=== PATIENT | female | born 1965 | race African-American/Black ===

== ENCOUNTER 2019-02-06 20:45 | Inpatient (IN) | payer BC ==
[~2019-02-06] VITALS: Ht 165.1 cm; Wt 118.8 kg
[2019-02-06 20:50] VITALS: BP 182/102
--- NOTE | 2019-02-06 20:57 | NUR ---
PT AMBULATED TO THE RESTROOM TO GIVE U/A SPECIMEN AND OUT TO LOBBY, VSS
[2019-02-06 21:14] LABS: BASOPHILS # (AUTO) 0.1 K/uL (0.00-0.22); BASOPHILS % (AUTO) 0.7 % (0.0-2.0); EOSINOPHILS % (AUTO) 0.1 % (0.0-4.0); HEMATOCRIT 39.1 % (36-48); LYMPHOCYTES # (AUTO) 1.3 K/uL (2.5-16.5); LYMPHOCYTES % (AUTO) 13.5 % (20.5-51.1); MEAN CORPUSCULAR HEMOGLOBIN 28 pg (27-31); MEAN CORPUSCULAR HGB CONC 33 g/dL (33-37); MEAN CORPUSCULAR VOLUME 83.7 fL (80-94); MONOCYTES # (AUTO) 0.3 K/uL (0.8-1.0); MONOCYTES % (AUTO) 3.5 % (1.7-9.3); NEUTROPHILS # (AUTO) 8.1 K/uL (1.8-7.7); NEUTROPHILS % (AUTO) 82.2 % (42.2-75.2); PLATELET COUNT (AUTO) 333 K/uL (140-450); RED BLOOD CELL COUNT(AUTO) 4.67 MIL/uL (4.20-5.40); RED CELL DISTRIBUTION WIDTH 14.1 % (11.6-13.7); WHITE BLOOD COUNT (AUTO) 9.9 K/uL (4.8-10.8)
[2019-02-06 21:30] LABS: ANION GAP 17.4 (8-16); CARBON DIOXIDE 25.1 mmol/L (21-32); CREATININE 0.8 mg/dL (0.6-1.3); POTASSIUM 3.5 mmol/L (3.5-5.1)
[2019-02-06 21:32] LABS: APPEARANCE,URINE CLOUDY (CLEAR); BILIRUBIN,URINE 1+ (NEGATIVE); BLOOD, URINE 2+ (NEGATIVE); COLOR,URINE YELLOW (YELLOW); LEUKOCYTE ESTERASE ,URINE NEGATIVE (NEGATIVE); NITRITE, URINE NEGATIVE (NEGATIVE); PH,URINE 5.5 (5.0-9.0); UGLUCOSE NEGATIVE (NEGATIVE)
[2019-02-06 21:36] LABS: ALBUMIN 4.1 g/dL (3.4-5.0); TOTAL BILIRUBIN 0.3 mg/dL (0.0-1.0)
--- NOTE | 2019-02-06 21:38 | NUR ---
PT TAKEN TO BED 7
[2019-02-06 21:48] LABS: WBC,URINE 0-5 /HPF (0-5)
--- NOTE | 2019-02-06 21:54 | NUR ---
PT TO ED WITH C/O ABD PAIN S/P EATING CHILI FRIES X 1 DAY AGO. +N/V/D. PT REPORTS ABD PAIN TO RUQ/RLQ. NO OBVIOUS DISTENTION NOTED. BOWEL SOUNDS HYPERACTIVE X 4. PT ERPORTS MILD PAIN UPON PALPATION. PT PLACED INTO BED, PENDING MD EVANS.
--- NOTE | 2019-02-06 22:33 | NUR ---
Dr. Hernandez evaluating patient at bedside.
[2019-02-06] MEDS ORDERED: ONDANSETRON 4 MG/2 ML VIAL IVP ONE (22:40)
[2019-02-06] MEDS ORDERED: NACL 0.9% 1,000 ML IV ONE (22:40)
[2019-02-06] MEDS ORDERED: fentaNYL 0.05 MG/ML VIAL IVP ONE (22:40)
--- NOTE | 2019-02-06 23:38 | NUR ---
PT RETURN FROM CT
--- NOTE | 2019-02-07 00:17 | NUR ---
AMBULATORY TO RESTROOM WITHOUT ASSIST.
--- NOTE | 2019-02-07 00:20 | NUR ---
PT C/O PAIN. ER MD AWARE. NO NEW ORDERS RECEIVED.
[2019-02-07] MEDS ORDERED: LORazepam 2 MG/ML VIAL IM/IVP PRN (01:20)
[2019-02-07] MEDS ORDERED: MORPHINE SULFATE 2 MG/ML SYR IVP PRN (01:20)
[2019-02-07] MEDS ORDERED: DOCUSATE SODIUM 100 MG GELCAP PO PRN (01:20)
[2019-02-07] MEDS ORDERED: fentaNYL 0.05 MG/ML VIAL IVP ONE (01:20)
[2019-02-07] MEDS ORDERED: ACETAMINOPHEN 325 MG TAB PO PRN (01:20)
[2019-02-07] MEDS ORDERED: LORazepam 2 MG/ML VIAL IVP ONE (01:20)
[2019-02-07] MEDS ORDERED: ZOLPIDEM 5 MG TAB PO PRN (01:20)
[2019-02-07] MEDS ORDERED: HYDROcodone/APAP 5/325 MG 1 TAB TAB PO PRN (01:20)
[2019-02-07 01:50] VITALS: BP 149/89
--- NOTE | 2019-02-07 01:50 | NUR ---
RECEIVED REPORT FROM ER NURSE. PT AWAKE, ALERT AND ORIENTED X 4. PT AMBULATED FROM GURNEY TO BED, STEADY GAIT. PT STATING 98% ON RA. PT 20 G LEFT A/C INTACT. PT SKIN INTACT. NO C/O DISCOMFORT. SAFETY MEASURES IN PLACE, BED RAILS UP X2, BED IN LOW POSITION, NON-SLIP SOCKS. PT EDUCATED ON USE OF CALL LIGHT. CALL LIGHT WITHIN REACH. WILL CONTINUE TO MONITOR.
[2019-02-07 01:51] LABS: BARBITURATE, URINE NEG. ng/ml (NEG <=200); BENZODIAZEPINE, URINE NEG. ng/mL (NEG <=200); CANNABINOID, URINE POS. ng/mL (NEG <=50); COCAINE, URINE NEG. ng/mL (NEG <=300); OPIATE, URINE NEG. ng/mL (NEG <=2000); PHENCYCLIDINE SCREEN,URINE NEG. ng/mL (NEG <=25)
--- NOTE | 2019-02-07 01:52 | NUR ---
Patient will be admitted to care of DR SAEED. Admited to MED/SURG. Will go to [id number]. Belongings list completed. Report to STACEYVINICIO.
[2019-02-07 02:02] LABS: PHOSPHORUS 3.6 mg/dL (2.5-4.9); THYROID STIMULATING HORMONE 1.36 uIU/mL (0.34-3.74)
[2019-02-07] MEDS ORDERED: ALBUTEROL SULFATE/IPRATROPIU 3 ML SOL IH PRN (02:25)
[2019-02-07 02:30] LABS: PROTHROMBIN TIME 10.1 secs (10.8-13.4)
[2019-02-07] MEDS ORDERED: metroNIDAZOLE 500 MG/NS PREMIX 100 ML IV SCH (02:30)
[2019-02-07] MEDS: DEXT 5% /NACL 0.9% 1,000 ML IV SCH ×2 (02:47→15:35)
--- NOTE | 2019-02-07 02:47 | NUR ---
IVF STARTED, MEDICATIONS GIVEN. PT TOLERATED WELL. NO C/O DISCOMFORT. SAFETY MEASURES IN PLACE. CALL LIGHT WITHIN REACH. WILL CONTINUE TO MONITOR.
[2019-02-07] MEDS ORDERED: NICOTINE TRANSD SYS 14 MG/24 HR PATCH TD SCH (03:00)
[2019-02-07 04:00] VITALS: BP 162/77
--- NOTE | 2019-02-07 04:45 | NUR ---
ROUNDED ON PT. PT ASLEEP IN BED. NO VISIBLE SIGNS OF DISTRESS. SAFETY MEASURES IN PLACE. CALL LIGHT WITHIN REACH. WILL CONTINUE TO MONITOR.
--- NOTE | 2019-02-07 05:30 | NUR ---
ADMINISTERED SOAP BRADLEY ENEMA PER ORDERS. PT TOLDERATED WELL. PT COMPLAINED OF "STOMACH BUBBLING". PT WENT TO THE REST ROOM BUT WAS UNABLE TO HAVE A BOWEL MOVEMENT.
[2019-02-07 06:45] LABS: BASOPHILS # (AUTO) 0.1 K/uL (0.00-0.22); BASOPHILS % (AUTO) 0.7 % (0.0-2.0); EOSINOPHILS % (AUTO) 0.1 % (0.0-4.0); HEMATOCRIT 37.3 % (36-48); HEMOGLOBIN 12.1 g/dL (12.0-16.0); LYMPHOCYTES # (AUTO) 2.4 K/uL (2.5-16.5); LYMPHOCYTES % (AUTO) 28.5 % (20.5-51.1); MEAN CORPUSCULAR HEMOGLOBIN 28 pg (27-31); MEAN CORPUSCULAR HGB CONC 32 g/dL (33-37); MEAN CORPUSCULAR VOLUME 86.2 fL (80-94); MONOCYTES # (AUTO) 0.6 K/uL (0.8-1.0); MONOCYTES % (AUTO) 7.6 % (1.7-9.3); NEUTROPHILS # (AUTO) 5.3 K/uL (1.8-7.7); NEUTROPHILS % (AUTO) 63.1 % (42.2-75.2); PLATELET COUNT (AUTO) 322 K/uL (140-450); RED BLOOD CELL COUNT(AUTO) 4.32 MIL/uL (4.20-5.40); RED CELL DISTRIBUTION WIDTH 14.1 % (11.6-13.7); WHITE BLOOD COUNT (AUTO) 8.4 K/uL (4.8-10.8)
[2019-02-07 06:59] LABS: ANION GAP 14.4 (8-16); CARBON DIOXIDE 26.9 mmol/L (21-32); CREATININE 0.8 mg/dL (0.6-1.3); POTASSIUM 3.3 mmol/L (3.5-5.1)
--- NOTE | 2019-02-07 07:20 | NUR ---
ENDORSED PT TO AM NURSE. PT IN STABLE CONDITION.
--- NOTE | 2019-02-07 07:30 | NUR ---
RECEIVED PT ON BED AAOX4. NO SOB NOTED. NO C/O PAIN AT THIS TIME. IV TO LEFT AC PATENT AND INTACT. CHEST CLEAR. ABDOMEN SLIGHTLY DISTENDED, BOWEL SOUNDS PRESENT. NO EDEMA NOTED. NPO MAINTAINED EXCEPT MEDS. INSTRUCTED PT TO CALL FOR ASSISTANCE, CALL LIGHT WITHIN REACH, VERBALIZED UNDERSTANDING.
[2019-02-07 08:00] VITALS: BP 163/84
--- NOTE | 2019-02-07 08:27 | NUR ---
PATIENT HAS BEEN SCREENED AND CATEGORIZED HIGH NUTRITION RISK. PATIENT WILL BE SEEN WITHIN 1-2 DAYS OF ADMISSION. 02/06/19-02/08/[address]
[2019-02-07] MEDS ORDERED: PSYLLIUM 12.2 GM/PKT PO SCH (09:00)
[2019-02-07] MEDS: NICOTINE TRANSD SYS 14 MG/24 HR PATCH TD SCH (09:00)
--- NOTE | 2019-02-07 10:00 | NUR ---
PT HAD BMX1, SMALL AMOUNT OF FORMED STOOLS, BROWN IN COLOR PER PT. WILL CONTINUE TO MONITOR.
[2019-02-07] MEDS: LACTOBACILLUS RHAMNOSUS GG 1 EACH CAP PO SCH (10:21)
[2019-02-07] MEDS: PANTOPRAZOLE 40 MG INJ VIAL IVP SCH (10:21)
--- NOTE | 2019-02-07 11:55 | NUR ---
DR. PARK NOTIFIED OF PT'S LATEST POTASSIUM LEVEL.
[2019-02-07 12:00] VITALS: BP 170/86
--- NOTE | 2019-02-07 12:30 | NUR ---
latest BP: 170/86 mmhg, HR: 50/min. pt asymptomatic, Dr. scott notified of elevated BP and decreased heart rate.
[2019-02-07] MEDS ORDERED: BISACODYL 10 MG SUPP RC SCH (13:00)
[2019-02-07] MEDS: metroNIDAZOLE 500 MG/NS PREMIX 100 ML IV SCH ×2 (13:13→21:17)
--- NOTE | 2019-02-07 13:15 | NUR ---
PT REFUSING SUPPOSITORY AT THIS TIME. STATED SHE WILL HAVE IT LATER THIS AFTERNOON WHEN HER VISITOR LEAVES.
--- NOTE | 2019-02-07 14:31 | NUR ---
02/07/19 RD INITIAL ASSESSMENT COMPLETED PLEASE REFER TO NUTRITION ASSESSMENT UNDER CARE ACTIVITY FOR ESTIMATED NUTRITIONAL NEEDS. 1. CONTINUE NPO DIET MEDICALLY NECESSARY 2. RECOMMEND CLEAR LIQUID DIET WHEN PT IS MEDICALLY STABLE TO RECEIVE NUTRITION. 3. HIGH FIBER DIET EDUCATION WAS PROVIDED 4. RD TO FOLLOW-UP 3-5 DAYS, MODERATE RISK WILLI AMES RD
[2019-02-07 16:00] VITALS: BP 142/72
--- NOTE | 2019-02-07 16:30 | NUR ---
latest BP: 142/86 mmhg, HR: 48/min. pt asymptomatic, Dr. Hussein notified of elevated BP and decreased heart rate as well as today's K level.
[2019-02-07] MEDS ORDERED: METOCLOPRAMIDE 10 MG TAB PO SCH ×2 (17:20→18:12)
[2019-02-07] MEDS ORDERED: MAGNESIUM HYDROXIDE 2400 MG/30 ML UDC PO SCH (17:29)
[2019-02-07] MEDS ORDERED: POTASSIUM CHLORIDE 10 MEQ TABER PO SCH (17:29)
[2019-02-07] MEDS ORDERED: MAGNESIUM OXIDE 400 MG TAB PO SCH (17:29)
--- NOTE | 2019-02-07 17:30 | NUR ---
NPO EXCEPT MEDS MAINTAINED BY PT ORDERED, VERBALIZED UNDERSTANDING.
[2019-02-07] MEDS ORDERED: POTASSIUM CHLORIDE 10 MEQ TABER PO ONE (18:00)
--- NOTE | 2019-02-07 19:04 | NUR ---
PT AWAKE, TALKING TO FAMILY AT THE BEDSIDE. NO SOB NOTED. NO COMPLAINTS MADE. WILL ENDORSE TO NEXT SHIFT NURSE FOR CONTINUITY OF CARE.
--- NOTE | 2019-02-07 19:05 | NUR ---
RECEIVED REPORT FROM AM NURSE. PT AWAKE, ALERT AND ORIENTED X4. PT SITTING UP IN BED SPEAKING WITH . LEFT AC 20 G INTACT AND INFUSING WELL. PT ON ROOM AIR. NO C/O OF DISCOMFORT. SAFETY MEASURES IN PLACE. PT IS AMBULATORY WITH STEADY GAIT. CALL LIGHT WITHIN REACH. WILL CONTINUE TO MONITOR.
[2019-02-07 20:15] VITALS: BP 142/72
[2019-02-07] MEDS: PSYLLIUM 12.2 GM/PKT PO SCH (21:18)
[2019-02-07] MEDS: DOCUSATE SODIUM 100 MG GELCAP PO SCH (21:18)
--- NOTE | 2019-02-07 21:20 | NUR ---
ROUNDED ON PT. PT SLEEPING ON RIGHT LATERAL SIDE. NO VISIBLE SIGNS OF DISTRESS. BREATHING EQUAL AND UNLABORED. SAFETY MEASURES IN PLACE. CALL LIGHT WITHIN REACH. WILL CONTINUE TO MONITOR.
[2019-02-07] MEDS ORDERED: LACTULOSE 20 GM/30 ML UDC PO SCH (21:30)
--- NOTE | 2019-02-07 22:46 | NUR ---
PT C/O "STOMACH CRAMPS" PT REFUSED MORPHINE OR NORCO FOR PAIN MANAGEMENT. PT GIVEN TYLENOL FOR PAIN MANAGEMENT. AUSCULTATED BOWEL SOUNDS HYPOACTIVE.
[2019-02-08] VITALS: BP 150/84
--- NOTE | 2019-02-08 00:10 | NUR ---
VITALS TAKEN ON PT. PT SLEEPING BUT EASILY AROUSABLE. NO C/O DISCOMFORT. CALL LIGHT WITHIN REACH.
--- NOTE | 2019-02-08 01:30 | NUR ---
PT STANDING AT BEDSIDE CRYING. PT STATES THAT HER "STOMACH IS CRAMPING." PT HAS YET TO HAVE A BM ON SHIFT. RESIDENT MD INFORMED OF PT CONDITION. RESIDENT MD GAVE ORDERS FOR FLEETS ENEMA.
--- NOTE | 2019-02-08 01:39 | NUR ---
FLEET ENEMA ADMINISTERED TO PT. PT TOLERATED WELL.
--- NOTE | 2019-02-08 01:40 | NUR ---
PT INSTRUCTED TO HOLD FLUIDS FROM ENEMA FOR 1-5 MIN PER INSTRUCTIONS. PT GOT UP TO USE RESTROOM IMMEDIATELY AFTER ADMINISTRATION. NO BM RESULTED.
[2019-02-08] MEDS ORDERED: SODIUM PHOSPHATE 118 ML ENEM RC SCH (02:00)
--- NOTE | 2019-02-08 02:30 | NUR ---
PT HAD SMALL EMISIS. SAFETY MEASURES IN PLACE. WILL CONTINUE TO MONITOR.
[2019-02-08] MEDS: DEXT 5% /NACL 0.9% 1,000 ML IV SCH ×2 (02:51→20:11)
--- NOTE | 2019-02-08 03:09 | NUR ---
PT TAKEN TO RADIOLOGY VIA WHEEL CHAIR FOR STANDING KUB ORDERED
--- NOTE | 2019-02-08 03:19 | NUR ---
PT RETURNED FROM RADIOLOGY. PT RECONNECTED TO IV FLUIDS. PT LAYING IN BED, AWAKE, ALERT AND ORIENTED X 4.
[2019-02-08 04:00] VITALS: BP 174/85
--- NOTE | 2019-02-08 04:40 | NUR ---
NGT PLACED PER ORDERS
[2019-02-08] MEDS: metroNIDAZOLE 500 MG/NS PREMIX 100 ML IV SCH ×3 (04:55→20:49)
--- NOTE | 2019-02-08 05:14 | NUR ---
ATIVAN GIVEN FOR ANXIETY
[2019-02-08 06:02] LABS: BASOPHILS % (AUTO) 0.5 % (0.0-2.0); HEMATOCRIT 35.7 % (36-48); HEMOGLOBIN 11.7 g/dL (12.0-16.0); LYMPHOCYTES # (AUTO) 0.9 K/uL (2.5-16.5); LYMPHOCYTES % (AUTO) 13.9 % (20.5-51.1); MEAN CORPUSCULAR HEMOGLOBIN 28 pg (27-31); MEAN CORPUSCULAR HGB CONC 33 g/dL (33-37); MEAN CORPUSCULAR VOLUME 84.6 fL (80-94); MONOCYTES # (AUTO) 0.4 K/uL (0.8-1.0); MONOCYTES % (AUTO) 6.8 % (1.7-9.3); NEUTROPHILS # (AUTO) 4.9 K/uL (1.8-7.7); NEUTROPHILS % (AUTO) 78.8 % (42.2-75.2); PLATELET COUNT (AUTO) 302 K/uL (140-450); RED BLOOD CELL COUNT(AUTO) 4.22 MIL/uL (4.20-5.40); RED CELL DISTRIBUTION WIDTH 13.8 % (11.6-13.7); WHITE BLOOD COUNT (AUTO) 6.2 K/uL (4.8-10.8)
--- NOTE | 2019-02-08 06:14 | NUR ---
ROUNDED ON PT. PT SLEEPING IN BED. NO VISIBLE SIGNS OF DISTRESS. CALL LIGHT WITHIN REACH.
[2019-02-08 06:20] LABS: ANION GAP 11.9 (8-16); CARBON DIOXIDE 27.4 mmol/L (21-32); CREATININE 0.8 mg/dL (0.6-1.3); POTASSIUM 3.3 mmol/L (3.5-5.1)
[2019-02-08 06:25] LABS: PHOSPHORUS 2.6 mg/dL (2.5-4.9)
--- NOTE | 2019-02-08 07:15 | NUR ---
ENDORSED TO AM NURSE. PT IN STABLE CONDITION.
--- NOTE | 2019-02-08 07:17 | NUR ---
RECEIVED PT FROM INCOME TAX PREPARER NURSE FOR CONTINUITY OF CARE. PT ASLEEP WITH NO APPARENT SIGN OF DISTRESS.
--- NOTE | 2019-02-08 07:20 | NUR ---
PT IS ASLEEP AND LYING ON THE BED WITH, RESPIRATION IS EVEN, SATURATION ON ROOM AIR, WITH NG TUBE IN PLACE AND ON INTERMITTENT SUCTION, PT HAS AN IV LINE ON THE LEFT AC G. 2O WITH D5 NS AT 70ML/HR INFUSING, PT WAS ON NPO EXCEPT MEDS. NO SIGN OF DISTRESS NOTED. WILL MONITOR PT.
[2019-02-08 08:00] VITALS: BP 175/89
[2019-02-08] MEDS ORDERED: POTASSIUM CHLORIDE 40 MEQ, LIDOCAINE MPF 1% - 5 mL VIAL 25 MG in NACL 0.9% 250 ML IV SCH (08:30)
[2019-02-08] MEDS: METOCLOPRAMIDE 10 MG TAB PO SCH ×3 (08:30→16:54)
[2019-02-08] MEDS: DOCUSATE SODIUM 100 MG GELCAP PO SCH ×2 (08:30→20:50)
--- NOTE | 2019-02-08 08:30 | NUR ---
PT'S PERIPHERAL LINE WAS INFILTRATED AND A NEW PERIPHERAL LINE WAS STARTED TO PT ON THE RT FA G. 22.
[2019-02-08] MEDS: PANTOPRAZOLE 40 MG INJ VIAL IVP SCH (08:31)
[2019-02-08] MEDS: LACTOBACILLUS RHAMNOSUS GG 1 EACH CAP PO SCH (08:31)
[2019-02-08] MEDS: PSYLLIUM 12.2 GM/PKT PO SCH ×2 (08:34→20:49)
[2019-02-08] MEDS: HYDROCHLOROTHIAZIDE 25 MG TAB PO SCH (09:06)
[2019-02-08] MEDS: amLODIPine 5 MG TAB PO SCH (09:07)
[2019-02-08] MEDS: NICOTINE TRANSD SYS 14 MG/24 HR PATCH TD SCH (09:08)
--- NOTE | 2019-02-08 12:34 | NUR ---
PT IS AWAKE AND ON THE BEDSIDE, ORAL AND IV MEDICATION WAS GIVEN AND PT TOLERATED IT. ANOTHER X-RAY WAS DONE TO PT ON THE ABDOMEN. NO SIGN OF DISTRESS NOTED. WILL MONITOR PT.
--- NOTE | 2019-02-08 12:39 | NUR ---
DR. EGAN CAME TO THE PT'S ROOM AND SPOKE TO PT.
--- NOTE | 2019-02-08 15:55 | NUR ---
PT GIVEN MED, TOLERATED WELL. PT DENIES ANY PAIN AT THIS TIME. FAMILY PRESENT AT BEDSIDE.
[2019-02-08 16:00] VITALS: BP 169/88
--- NOTE | 2019-02-08 17:00 | NUR ---
PT AWAKE TALKING WITH FAMILY MEMBERS, TAKEN VS BP 169/88, T 98.1 (ORALLY), P 56, R 20, O2 100% RA. NOTIFIED MD. WILL CONTINUE TO MONITOR PT.
[2019-02-08 18:14] LABS: TRANSFERRIN 246 mg/dL (200 - 370)
--- NOTE | 2019-02-08 18:55 | NUR ---
PATIENT AWAKE, TALKING WITH FAMILY MEMBERS. VS RE-CHECKED BP 168/81, P 56. WILL ENDORSE TO CENTRAL SERVICE SUPPLY DISTRIBUTOR NURSE TO CONTINUE MONITORING, AND INFORM MD
--- NOTE | 2019-02-08 19:20 | NUR ---
PT ENDORSED TO TUNNEL MUCKER NURSE FOR CONTINUITY OF CARE. FAMILY AWAKE, ALERT, FAMILY AT BEDSIDE.
--- NOTE | 2019-02-08 19:21 | NUR ---
PATIENT AWAKE ON BED ,ALERT ,ORIENTED, MED SURG ,IV SITE INTACT AND PATENT ,NO COMPLAIN OF ABDOMINAL PAIN AT THIS TIME ,WITH NGT LOW INTERMITTENT SUCTION . PLAN OF CARE DISCUSSED AND VERBALIZED OF UNDERSTANDING,FAMILY MEMBERS AT BEDSIDES.BED IN LOW POSITION ,SIDERAILS UPX2 ,CALL LIGHT WITHIN REACH. WILL CONTINUE TO MONITOR.
[2019-02-08 19:45] VITALS: BP 182/90
[2019-02-08] MEDS: ONDANSETRON 4 MG/2 ML VIAL IM/IVP PRN (20:02)
--- NOTE | 2019-02-08 20:02 | NUR ---
PATIENT VOMITED WITH CLEAR LIQUID VOMITUS IN MODERATE AMOUNT.ZOFRAN 4MG/IV PUSH GIVEN ORDERED.
[2019-02-08] MEDS ORDERED: LISINOPRIL 10 MG TAB ONE (20:19)
[2019-02-08] MEDS: LISINOPRIL 10 MG TAB PO SCH (20:50)
--- NOTE | 2019-02-08 20:55 | NUR ---
PT REFUSED HEPARIN SUBQ. SHE SAID WHEN SHE HAD IT ,SHE DIDN'T FEEL GOOD. DR. ARNOLD MADE AWARE . SHE SAID OK. JUST APPLY SCD TO BLE.
--- NOTE | 2019-02-08 21:49 | NUR ---
DR. EGAN CALLED AND ASKED IF DR. Genaro ZAVALA ALREADY SEEN PT. I TOLD HIM NOT YET, BUT PT ALREADY HAD X4 BM TODAY. NO NEW ORDER MADE.
[2019-02-09] VITALS: BP 135/78
--- NOTE | 2019-02-09 | NUR ---
MADE ROUNDS. PATIENT RESTING ON BED ,NGT DRAINING AND INTACT .NO S/SX OF DISCOMFORT NOTED AT THIS TIME.
--- NOTE | 2019-02-09 02:00 | NUR ---
PATIENT SLEEPING ,BED ON LOW POSITION ,NO S/SX OF DISCOMFORT NOTED AT THIS TIME.
--- NOTE | 2019-02-09 05:00 | NUR ---
PATIENT VOMITED OF CLEAR LIQUID ,NON BLOODY VOMITUS ON MODERATE AMOUNT.IV SITE ON LEFT UPPER FOREARM INFLAMMED AND NOT INTACT. AND NEW IV CANNULA INSERTED ON RIGHT LOWER ARM .WILL CONTINUE TO MONITOR.
[2019-02-09] MEDS: DEXT 5% /NACL 0.9% 1,000 ML IV SCH (05:30)
[2019-02-09] MEDS: metroNIDAZOLE 500 MG/NS PREMIX 100 ML IV SCH ×2 (05:30→13:00)
[2019-02-09] MEDS: ONDANSETRON 4 MG/2 ML VIAL IM/IVP PRN (05:30)
--- NOTE | 2019-02-09 05:30 | NUR ---
PERSISTENT VOMITING .ZOFRAN TIV PRN GIVEN ORDERED OTHER SCHEDULED MED. GIVEN .IVF INFUSING WELL.WILL CONTINUE TO MONITOR.
[2019-02-09 06:21] LABS: MAGNESIUM 1.8 mg/dL (1.8-2.4)
[2019-02-09 06:59] LABS: ANION GAP 12.6 (8-16); CARBON DIOXIDE 28.7 mmol/L (21-32); CREATININE 0.8 mg/dL (0.6-1.3); POTASSIUM 3.3 mmol/L (3.5-5.1)
[2019-02-09 07:05] LABS: BASOPHILS % (AUTO) 0.4 % (0.0-2.0); EOSINOPHILS % (AUTO) 0.1 % (0.0-4.0); HEMATOCRIT 35.5 % (36-48); HEMOGLOBIN 11.7 g/dL (12.0-16.0); LYMPHOCYTES % (AUTO) 26.8 % (20.5-51.1); MEAN CORPUSCULAR HEMOGLOBIN 28 pg (27-31); MEAN CORPUSCULAR HGB CONC 33 g/dL (33-37); MEAN CORPUSCULAR VOLUME 86.2 fL (80-94); MONOCYTES # (AUTO) 0.9 K/uL (0.8-1.0); MONOCYTES % (AUTO) 11.6 % (1.7-9.3); NEUTROPHILS # (AUTO) 4.6 K/uL (1.8-7.7); NEUTROPHILS % (AUTO) 61.1 % (42.2-75.2); PLATELET COUNT (AUTO) 301 K/uL (140-450); RED BLOOD CELL COUNT(AUTO) 4.12 MIL/uL (4.20-5.40); RED CELL DISTRIBUTION WIDTH 13.8 % (11.6-13.7); WHITE BLOOD COUNT (AUTO) 7.5 K/uL (4.8-10.8)
--- NOTE | 2019-02-09 07:10 | NUR ---
ENDORSED TO AM NURSE FOR CONTINUITY OF CARE.
--- NOTE | 2019-02-09 07:15 | NUR ---
RECEIVED PT FROM INSOLE AND HEEL STIFFENER NURSE FOR CONTINUITY OF CARE. PT IN THE RESTROOM AT THIS TIME. NO SIGNS OF DISTRESS. BED IN LOW POSITION, ARRANGED BEDDINGS, AND PUT CALL LIGHT WITHIN REACH ON PT'S BED. WILL CONTINUE TO MONITOR PT.
[2019-02-09] MEDS: LISINOPRIL 10 MG TAB PO SCH (08:44)
[2019-02-09] MEDS: HYDROCHLOROTHIAZIDE 25 MG TAB PO SCH (08:44)
[2019-02-09] MEDS: LACTOBACILLUS RHAMNOSUS GG 1 EACH CAP PO SCH (08:44)
[2019-02-09] MEDS: amLODIPine 5 MG TAB PO SCH (08:44)
[2019-02-09] MEDS: DOCUSATE SODIUM 100 MG GELCAP PO SCH (08:44)
[2019-02-09] MEDS: PANTOPRAZOLE 40 MG INJ VIAL IVP SCH (08:45)
[2019-02-09] MEDS: METOCLOPRAMIDE 10 MG TAB PO SCH ×2 (08:49→13:00)
[2019-02-09] MEDS: PSYLLIUM 12.2 GM/PKT PO SCH (08:52)
[2019-02-09] MEDS: NICOTINE TRANSD SYS 14 MG/24 HR PATCH TD SCH (08:55)
[2019-02-09] MEDS ORDERED: METO10TA98 PO (10:24)
[2019-02-09] MEDS ORDERED: METPCK PO (10:24)
[2019-02-09] MEDS ORDERED: AMLO5TAB6 PO (10:24)
[2019-02-09] MEDS ORDERED: ORE25 PO (10:24)
[2019-02-09] MEDS ORDERED: DOCU-299 PO (10:24)
[2019-02-09] MEDS ORDERED: POTASSIUM CHLORIDE 10 MEQ TABER PO SCH (11:00)
--- NOTE | 2019-02-09 11:10 | NUR ---
NG TUBE WAS REMOVED AT THIS TIME. SWALLOW REFLEX TESTED TO CHECK PATENCY BY GIVING ICE CHIPS. PT DENIES ANY PAIN. PATIENT WAS ADVISED THAT HER DIET WILL BE ADVANCED TO REGULAR DIET AT LUNCH TIME. WILL MONITOR.
--- NOTE | 2019-02-09 11:17 | NUR ---
ADMINISTERED MEDICATION. PT TOLERATED MEDICINE WELL.
--- NOTE | 2019-02-09 11:30 | NUR ---
PT AWAKE, ALERT, ORIENTED, CONVERSANT. BED IB LOW POSITION, CALL LIGHT WITHIN REACH. BED IN LOW POSITION. WILL CONTINUE TO MONITOR.
[2019-02-09 11:57] VITALS: BP 148/83
--- NOTE | 2019-02-09 13:50 | NUR ---
DISCHARGED PT TO HOME VIA WHEELCHAIR ACCOMPANIED BY , INSTRUCTIONS AND TEACHINGS GIVEN TO PT AND PT VERBALIZED UNDERSTANDING, IV LINE AND ARM BAND REMOVED. MEDICATIONS INSTRUCTIONS AND DIET MANAGEMENT WAS TOLD TO PT WELL. VITAL SIGNS TAKEN AND BP IS 149/68, PULSE IS 89, TEMPERATURE IS 98.4, O2 SATURATION IS 98% AND PT IS STAB,E AT THIS TIME, DENIES PAIN.
[2019-02-09 17:13] LABS: FERRITIN 207 ng/mL (15 - 150)
[2019-02-09 17:14] LABS: FOLIC ACID > 20.00 ng/mL (>3.0)
== END 2019-02-09 13:50 | disposition home or self-care (01) | DRG 389 ==
LOC: MED 20:45 → MMU 02-07 01:24
PROVIDERS: ADMIT General Practice; ATTEND General Practice
PROC: 0D9670Z Drainage of Stomach with Drainage Device, Via Natural or Artificial Opening (ICD-10-PCS; principal; 2019-02-07)
DX: K56.600 Partial intestinal obstruction, unspecified as to cause (principal); J98.11 Atelectasis; Z68.41 Body mass index [BMI] 40.0-44.9, adult; K52.9 Noninfective gastroenteritis and colitis, unspecified; K57.90 Diverticulosis of intestine, part unspecified, without perforation or abscess without bleeding; I10 Essential (primary) hypertension; E86.0 Dehydration; E66.9 Obesity, unspecified; D18.09 Hemangioma of other sites; K76.0 Fatty (change of) liver, not elsewhere classified; N28.1 Cyst of kidney, acquired; K43.9 Ventral hernia without obstruction or gangrene; I70.0 Atherosclerosis of aorta; E87.6 Hypokalemia; Z82.49 Family history of ischemic heart disease and other diseases of the circulatory system; Z80.0 Family history of malignant neoplasm of digestive organs; Z87.891 Personal history of nicotine dependence
CPT/HCPCS: 36415; 71045; 74018; 74250; 80048; 80053; 80305; 81001; 82150; 82607; 82728; 82746; 83036; 83540; 83690; 83735; 83880; 84100; 84436; 84443; 84484; 84703; 85025; 85045; 85610; 85730; 87081; 87086; 96361; 96374; 96375; 96376; 99284; C9113; J1644; J2001; J2060; J2405; J3010; J3480; J3490; J7030; J7042; J8597; Q0092; Q9967

== ENCOUNTER 2019-02-12 14:00 | Emergency (ER) | payer BC ==
[~2019-02-12] VITALS: Ht 165.1 cm; Wt 70.0 kg
[~2019-02-12 14:00] MED LIST: AMLO5TAB6 PO; DOCU-299 PO; METO10TA98 PO; METPCK PO; ORE25 PO
[2019-02-12 14:10] VITALS: BP 153/107
--- NOTE | 2019-02-12 14:18 | NUR ---
53 Y FEMALE BIB C/O ABD PAIN AND CONSTIPATION X 4 DAYS. PT REPORTS INTERMITENT SPASM/SQUEZING PAIN AT 06/22. + N/V. LAST BM 02/09/19. DC'D FROM [facility] LA[facility] WEDNESDAY FOR ABD PAIN, CONSTIPATION. STATES SHE IS HAVING NO RELFIEF WITH HER PRESCRIBED MEDICATIONS, CANT RECALL THE NAMES. ABDOMEN SOFT AND ROUNS, BOWEL SOUNDS ACTIVE IN ALL 4 QUADRANTS. VSS AT THIS TIME. PT AA0X4. BED IS DOWN, LOCKED, BED RAIL X 1, ERMD TO SEE PT. MEDHX:HTN RX:MAGNESIUM CITRATE LAXITAIVE, FLEET ENEMA, DOCUSATE AMLODIPINE, METOCLOPRAMIDE, HYDROCHLOROTHIAZIDE
--- NOTE | 2019-02-12 14:19 | NUR ---
DR DAWSON AT BEDSIDE
--- NOTE | 2019-02-12 14:25 | NUR ---
PT AMB TO RESTROOM STEADY GAIT. UNABLE TO GIVE URINE AT THIS TIME
[2019-02-12 15:03] VITALS: BP 157/102
--- NOTE | 2019-02-12 15:03 | NUR ---
Patient discharged with v/s stable. Written and verbal after care instructions given and explained. Patient alert, oriented and verbalized understanding of instructions. Ambulatory with steady gait. All questions addressed prior to discharge. ID band removed. Patient advised to follow up with PMD. Rx of LACTULOSE, MINEROL OIL, MIRALAX POWDER, ZOFRAN given. Patient educated on indication of medication including possible reaction and side effects. Opportunity to ask questions provided and answered.
== END 2019-02-12 15:03 | disposition home or self-care (01) ==
LOC: MED 14:00
DX: R10.9 Unspecified abdominal pain (principal); R11.10 Vomiting, unspecified; Z79.899 Other long term (current) drug therapy
CPT/HCPCS: 99283